=== PATIENT | male | born 1990 | race Hispanic/Latino ===

== ENCOUNTER 2021-04-28 17:26 | Emergency (ER) | payer BC, SELFPAY ==
[2021-04-28 18:14] LABS: #Eosinphils 0.1 10x3/uL (0.0-0.5); #Monocytes 0.8 10x3/uL (0.0-1.1); %Basophils 0.4 % (0.0-2.0); %Eosinophils 0.7 % (0.0-6.0); %Lymphocytes 21.9 % (18.0-47.0); %Monocytes 8.8 % (0.0-10.0); %Neutrophils 67.1 % (40.0-75.0); Mean Corpuscular HGB CONC 34.9 g/dL (32.0-36.0); Mean Platelet Volume 10.6 fl (7.4-10.4); Platelet Count 242 10x3/uL (150-450); RBC Distribution Width 12.2 % (11.5-14.5); Red Blood Cell (RBC) Count 5.52 10x6/uL (4.32-5.72); White Blood Cell (WBC) Count 8.9 10x3/uL (3.5-10.5)
[2021-04-28] MEDS ORDERED: Dexamethasone 10 MG/ML VIAL ONE (18:15)
[2021-04-28] MEDS ORDERED: Ketorolac Tromethamine 30 MG/ML VIAL ONE (18:16)
[2021-04-28] MEDS ORDERED: Aspirin 325 MG TAB ONE (18:16)
[2021-04-28 18:30] LABS: ALT (SGPT) 128 U/L (8-55); AST (SGOT) 50 U/L (5-34); Albumin 4.4 g/dL (3.5-5.0); Alkaline Phosphatase 83 U/L (40-110); Anion Gap 12 mmol/L (10-20); BUN (Urea Nitrogen) 13 mg/dL (8.9-20.6); Bilirubin, Total 0.9 mg/dL (0.2-1.2); CK (CPK) 154 U/L (30-200); Calc. Creatinine Clearance 0 mL/min (70-130); Calcium 9.3 mg/dL (7.8-10.44); Carbon Dioxide 27 mmol/L (22-29); Chloride 103 mmol/L (98-107); Globulin 3.1 g/dL (2.4-3.5); Glucose 116 mg/dL (70-105); Lipase 28 U/L (8-78); Potassium 3.4 mmol/L (3.5-5.1); Protein, Total 7.5 g/dL (6.0-8.3); Sodium 139 mmol/L (136-145)
[2021-04-28 18:50] LABS: CKMB 0.9 ng/mL (0-6.6)
[2021-04-28 21:18] LABS: Troponin I 0.025 ng/mL (< 0.028)
[2021-04-29 21:43] LABS: SARS-CoV-2 PCR by NAA DETECTED (NotDetected)
== END 2021-04-28 22:11 | disposition home or self-care (01) ==
LOC: CSHERS 17:26
DX: U07.1 COVID-19 (principal); I10 Essential (primary) hypertension
CPT/HCPCS: 36415; 71045; 80053; 82550; 82553; 83690; 83880; 84484; 85025; 85379; 87804; 93005; 96374; 96375; J1100; J1885; U0003; U0005